=== PATIENT | male | born 1990 | race Caucasian/White ===

== ENCOUNTER → 2016-05-06 | Outpatient (CLI) | payer BC ==
[~2016-05-06] MED LIST: FLEXERIL10 MG PO; MOTRIN800 MG PO; PEN-VEE K,VEET500 MG PO
[2016-05-06 09:45] LABS: HEMATOCRIT 45.9 % (38.0-50.0); MCH 31.4 PG (29.0-34.0); MCHC 34.4 G/DL (30.0-36.0); MCV 91.3 FL (86-99); MEAN PLAT.VOLUME 10.7 uM^3 (9.0-12.4); PLATELET COUNT 117 K/uL (156-360); RBC DIS.WIDTH-SD 42.8 % (39-53); RED BLOOD COUNT 5.03 M/uL (4.00-5.50)
[2016-05-06 10:00] LABS: INTER. NORMALIZED RATIO 1.2; PROTHROMBIN TIME 11.9 (9.2-11.2); PTT 34.1 (25-32)
== END | disposition home or self-care (01) ==
LOC: OPR 08:46 → EDSTATUS 09:00
PROVIDERS: Specialist
PROC: 0FB03ZX Excision of Liver, Percutaneous Approach, Diagnostic (ICD-10-PCS; principal; 2016-05-06)
DX: B18.2 Chronic viral hepatitis C (principal); F17.210 Nicotine dependence, cigarettes, uncomplicated; Z87.898 Personal history of other specified conditions; Z82.49 Family history of ischemic heart disease and other diseases of the circulatory system
CPT/HCPCS: 77012; 82525 90; 85027; 85610; 85730; 88307; 88312; J3010